=== PATIENT | male | born 1990 | race Caucasian/White ===

== ENCOUNTER 2016-05-12 01:32 | Emergency (ER) | payer BC ==
[2016-05-12] MEDS ORDERED: NORMAL SALINE 1000 ML 1,000 ML IV PRN ×4 (01:44→03:14)
--- NOTE | 2016-05-12 01:44 | ER Document Report ---
ED Cardiac - General Stated Complaint: CHEST PAIN Time seen by provider: 01:44 Mode of Arrival: Ambulatory Information source: Patient TRAVEL OUTSIDE OF THE [place] IN LAST 30 DAYS: No - HPI Patient complains to provider of: Chest tightness, Palpitations, Shortness of breath Was the onset of pain: Sudden When did pain begin: just prior to arrival Is the pain a: New problem Chest pain location: Substernal Quality of pain: Tightness Severity now: Moderate Severity at worst: Moderate Pain level currently: 5 Chest pain precipitating factors: At Rest Cardiac risk factors: Hypertension Positive cardiac history: No Associated symptoms: Palpitations, Shortness of breath Exacerbated by: Denies Relieved by: Nothing Notes: Patient is a 25-year-old male presenting to the emergency room for complaints of chest tightness, shortness of breath and rapid heart rate this suddenly started prior to arrival in the emergency room, patient denies a history of similar symptoms previously, although he admits to having chest pain in the past and actually received a cardiac catheterization within the last year which she reports as being completely normal, he has a history of hypertension and takes lisinopril for this, denies missing any doses of this medication, patient does admit to working out frequently and takes several pre-workout supplements, denies any energy drinks or caffeinated beverages today, denies any illicit drug abuse, no [id number] medications - Related Data Allergies/Adverse Reactions: Penicillins Allergy (Verified 07/02/15 01:08) Past Medical History - General Information source: Patient - Social History Smoking Status: Unknown if Ever Smoked Family History: Reviewed & Not Pertinent - Past Medical History Cardiac Medical History: Reports: Hx Hypertension Psychiatric Medical History: Reports: Hx Anxiety Past Surgical History: Reports: Hx Appendectomy, Hx Orthopedic Surgery - wrist - Immunizations Hx Diphtheria, Pertussis, Tetanus Vaccination: No Review of Systems - Review of Systems Constitutional: No symptoms reported EENT: No symptoms reported Cardiovascular: See HPI Respiratory: No symptoms reported Gastrointestinal: No symptoms reported Genitourinary: No symptoms reported Male Genitourinary: No symptoms reported Musculoskeletal: No symptoms reported Skin: No symptoms reported Hematologic/Lymphatic: No symptoms reported Neurological/Psychological: No symptoms reported -: Yes All other systems reviewed and negative Physical Exam - Vital signs Vitals: Resp Pulse Ox 30 H 99 05/12/16 01:44 05/12/16 01:44 Interpretation: Tachycardic - General General appearance: Appears well, Alert - HEENT Head: Normocephalic, Atraumatic Eyes: Normal Pupils: PERRL - Respiratory Respiratory status: No respiratory distress Chest status: Nontender Breath sounds: Normal Chest palpation: Normal - Cardiovascular Rhythm: Regular, Tachycardia Heart sounds: Normal auscultation Murmur: No - Abdominal Inspection: Normal Distension: No distension Bowel sounds: Normal Tenderness: Nontender Organomegaly: No organomegaly - Back Back: Normal, Nontender - Extremities General upper extremity: Normal inspection, Nontender, Normal color, Normal ROM , Normal temperature General lower extremity: Normal inspection, Nontender, Normal color, Normal ROM , Normal temperature, Normal weight bearing. No: Gibran's sign - Neurological Neuro grossly intact: Yes Cognition: Normal Orientation: AAOx4 [place] Coma Scale Eye Opening: Spontaneous [place] Coma Scale Verbal: Oriented [place] Coma Scale Motor: Obeys Commands [place] Coma Scale Total: 15 Speech: Normal Motor strength normal: LUE, RUE, LLE, RLE Sensory: Normal - Psychological Associated symptoms: Normal affect, Normal mood - Skin Skin Temperature: Warm Skin Moisture: Dry Skin Color: Normal Course - Re-evaluation Re-evalutation: 05/12/16 05:53 Patient's laboratory evaluation consistent with early rhabdomyolysis, his received 6 L of IV fluids, and shows an improvement in his labs as well as his vital signs, he does report feeling somewhat better, I suspect symptoms are related to workout supplements that patient is using, he was advised to discontinue using this, drink plenty of fluids over the next couple of days, follow up with a primary care provider or return if symptoms worsen, patient acknowledges understanding and agreement with this plan - Vital Signs Vital signs: Temp Pulse Resp BP Pulse Ox 22 H 156/93 H 100 05/12/16 05:31 05/12/16 04:31 05/12/16 05:31 - Laboratory Result Diagrams: 05/12/16 05:20 05/12/16 05:20 Laboratory results interpreted by me: 05/12/16 05/12/16 05/12/16 01:45 01:45 01:45 WBC 23.2 H RBC 5.82 H Hgb 17.6 H Hct 53.1 H Seg Neutrophils % Absolute Neutrophils Abs Neuts (Manual) 17.9 H Potassium BUN 28 H Creatinine 1.35 H Calcium AST 73 H ALT 138 H Creatine Kinase 1424 H CK-MB (CK-2) 9.16 H Total Protein Albumin 5.3 H Urine Protein Urine Ketones Urine Ascorbic Acid 05/12/16 05/12/16 05/12/16 02:40 05:20 05:20 WBC 15.3 H RBC Hgb Hct Seg Neutrophils % 80.2 H Absolute Neutrophils 12.3 H Abs Neuts (Manual) Potassium 5.4 H D BUN 26 H Creatinine Calcium 7.8 L AST 61 H ALT 108 H Creatine Kinase 1126 H CK-MB (CK-2) Total Protein 5.9 L Albumin Urine Protein 100 H Urine Ketones TRACE H Urine Ascorbic Acid 40 H - Diagnostic Test Radiology reviewed: Image reviewed, Reports reviewed - EKG Interpretation by De EKG shows normal: Sinus rhythm Rate: Tachycardia Additional EKG results interpreted by nh: 05/12/16 05:53 Patient's repeat EKG shows normal sinus rhythm at a rate of 97 with inferior Q waves, a comparison with a EKG performed on 09/15/2015 reveals inferior Q waves as well, relatively unchanged EKG Discharge - Discharge Clinical Impression: Tachycardia Rhabdomyolysis Qualifiers: Rhabdomyolysis type: non-traumatic Qualified Code(s): M62.82 - Rhabdomyolysis Condition: Stable Disposition: HOME, SELF-CARE Instructions: Chest Wall Pain ([facility]), Sinus Tachycardia ([facility]) Additional Instructions: Drink plenty of fluids and get plenty or rest. Follow up with your primary care provider in one to 2 days. Discontinue using pre-workout supplements as it is likely the cause of your symptoms today. Return to the emergency room immediately if symptoms worsen or any additional concerns.
[2016-05-12 02:09] LABS: ALANINE AMINOTRANSFERASE 138 U/L (21-72); ALBUMIN 5.3 g/dL (3.5-5.0); ALKALINE PHOSPHATASE 63 U/L (38-126); ANION GAP 14 (5-19); ASPARTATE AMINO TRANSFERASE 73 U/L (17-59); BILIRUBIN,TOTAL 0.7 mg/dL (0.2-1.3); BLOOD UREA NITROGEN 28 mg/dL (7-20); CALCIUM 9.9 mg/dL (8.4-10.2); CARBON DIOXIDE 30 mmol/L (22-30); CHLORIDE 99 mmol/L (98-107); CREATINE KINASE 1424 U/L (55-170); CREATININE RESULT 1.35 mg/dL (0.52-1.25); GLUCOSE 79 mg/dL (75-110); POTASSIUM 4.3 mmol/L (3.6-5.0); SODIUM 142.9 mmol/L (137-145)
[2016-05-12 02:15] LABS: HEMATOCRIT 53.1 % (37.9-51.0); HEMOGLOBIN 17.6 g/dL (13.5-17.0); HGB HCT DIFFERENCE -0.3; MEAN CORPUSCULAR HEMOGLOBIN 30.3 pg (27.0-33.4); MEAN CORPUSCULAR HGB CONC 33.2 g/dL (32.0-36.0); MEAN CORPUSCULAR VOLUME 91 fl (80-97); RED BLOOD COUNT 5.82 10^6/uL (4.35-5.55); RED CELL DISTRIBUTION WIDTH 13.8 % (11.5-14.0); WHITE BLOOD COUNT 23.2 10^3/uL (4.0-10.5)
[2016-05-12 02:22] LABS: CREATINE KINASE MB 9.16 ng/mL (<4.55)
[2016-05-12 02:26] LABS: TROPONIN I < 0.012 ng/mL
[2016-05-12 02:31] LABS: BAND NEUTROPHILS % (MANUAL) 4 % (3-5); BASOPHILS % (MANUAL) 0 % (0-2); EOSINOPHILS % (MANUAL) 0 % (0-6); LYMPHOCYTES % (MANUAL) 20 % (13-45); TOTAL CELLS COUNTED 100
[2016-05-12 02:33] LABS: OVALOCYTES SLIGHT; POIKILOCYTOSIS SLIGHT; POLYCHROMASIA SLIGHT; TEAR DROP CELLS SLIGHT; TOXIC GRANULATION SLIGHT
[2016-05-12 03:24] LABS: APPEARANCE,URINE CLEAR; BILIRUBIN,URINE NEGATIVE (NEGATIVE); GLUCOSE, URINE NEGATIVE (NEGATIVE); KETONES,URINE TRACE mg/dL (NEGATIVE); LEUKOCYTE ESTERASE,URINE NEGATIVE (NEGATIVE); NITRITE,URINE NEGATIVE (NEGATIVE); PROTEIN,URINE 100 mg/dL (NEGATIVE); URINE SPECIFIC GRAVITY 1.023; UROBILINOGEN,URINE NEGATIVE mg/dL (<2.0)
[2016-05-12 03:27] LABS: URINE BARBITURATES SCREEN NEGATIVE; URINE METHADONE SCREEN NEGATIVE; URINE PHENCYCLIDINE SCREEN NEGATIVE
[2016-05-12] MEDS ORDERED: NORMAL SALINE 1000 ML 2,000 ML IV PRN (04:34)
[2016-05-12 05:43] LABS: ABSOLUTE BASOPHILS # (AUTO) 0.1 10^3/uL (0.0-0.2); ABSOLUTE LYMPHOCYTES (AUTO) 2.1 10^3/uL (0.5-4.7); ABSOLUTE MONOCYTES (AUTO) 0.9 10^3/uL (0.1-1.4); ABSOLUTE NEUT (AUTO) 12.3 10^3/uL (1.7-8.2); BASOPHILS % (AUTO) 0.4 % (0-2); EOSINOPHILS % (AUTO) 0.1 % (0-6); HEMATOCRIT 45.5 % (37.9-51.0); HEMOGLOBIN 15.6 g/dL (13.5-17.0); HGB HCT DIFFERENCE 1.3; LYMPHOCYTES % (AUTO) 13.5 % (13-45); MEAN CORPUSCULAR HEMOGLOBIN 31.1 pg (27.0-33.4); MEAN CORPUSCULAR HGB CONC 34.3 g/dL (32.0-36.0); MEAN CORPUSCULAR VOLUME 91 fl (80-97); MONOCYTES % (AUTO) 5.8 % (3-13); RED BLOOD COUNT 5.02 10^6/uL (4.35-5.55); RED CELL DISTRIBUTION WIDTH 13.9 % (11.5-14.0); SEGMENTED NEUTROPHILS % (AUTO) 80.2 % (42-78); WHITE BLOOD COUNT 15.3 10^3/uL (4.0-10.5)
[2016-05-12 05:59] LABS: ALANINE AMINOTRANSFERASE 108 U/L (21-72); ALBUMIN 3.5 g/dL (3.5-5.0); ALKALINE PHOSPHATASE 49 U/L (38-126); ANION GAP 10 (5-19); ASPARTATE AMINO TRANSFERASE 61 U/L (17-59); BILIRUBIN,TOTAL 0.6 mg/dL (0.2-1.3); BLOOD UREA NITROGEN 26 mg/dL (7-20); CALCIUM 7.8 mg/dL (8.4-10.2); CARBON DIOXIDE 25 mmol/L (22-30); CHLORIDE 106 mmol/L (98-107); CREATINE KINASE 1126 U/L (55-170); CREATININE RESULT 1.04 mg/dL (0.52-1.25); GLUCOSE 81 mg/dL (75-110); SODIUM 141.2 mmol/L (137-145); TOTAL PROTEIN 5.9 g/dL (6.3-8.2)
[2016-05-12 06:08] LABS: POTASSIUM 5.4 mmol/L (3.6-5.0)
[2016-05-12 06:11] LABS: CREATINE KINASE MB 6.31 ng/mL (<4.55)
[2016-05-12 06:13] LABS: TROPONIN I < 0.012 ng/mL
[2016-05-12] MEDS ORDERED: IBUPROFEN 600 MG TABLET PO ONE (06:18)
[2016-05-12 06:34] VITALS: BP 168/92
--- NOTE | 2016-05-12 09:43 | EKG REPORT ---
SEVERITY:- BORDERLINE ECG - SINUS RHYTHM INFERIOR Q WAVES, PROBABLY NORMAL VARIATION : Confirmed by: Annia Panda MD 12-May-2016 09:42:35
--- NOTE | 2016-05-12 09:43 | EKG REPORT ---
SEVERITY:- ABNORMAL ECG - SINUS OR ECTOPIC ATRIAL TACHYCARDIA NONSPECIFIC IVCD WITH LAD INFERIOR Q WAVES, PROBABLY NORMAL VARIATION : Confirmed by: Annia Panda MD 12-May-2016 09:42:45
== END 2016-05-12 06:35 | disposition home or self-care (01) ==
LOC: ER 01:32
DX: R00.0 Tachycardia, unspecified (principal); M62.82 Rhabdomyolysis; R07.9 Chest pain, unspecified; R06.02 Shortness of breath
CPT/HCPCS: 93005; 99285; 96360; 96361; 36415; 82553; 82550; 85025; 80053; 81001; 84484; 80307; 85379; 71010; 93010; J7030

== ENCOUNTER → 2016-07-04 | Outpatient (CLI) | payer BC ==
[2016-07-05 08:50] LABS: ALANINE AMINOTRANSFERASE 71 U/L (21-72); ALBUMIN 4.7 g/dL (3.5-5.0); ALKALINE PHOSPHATASE 61 U/L (38-126); ANION GAP 13 (5-19); ASPARTATE AMINO TRANSFERASE 44 U/L (17-59); BILIRUBIN,TOTAL 0.9 mg/dL (0.2-1.3); BLOOD UREA NITROGEN 19 mg/dL (7-20); CALCIUM 10.3 mg/dL (8.4-10.2); CARBON DIOXIDE 29 mmol/L (22-30); CHLORIDE 100 mmol/L (98-107); CHOLESTEROL 223.26 mg/dL (0-200); CREATINE KINASE 652 U/L (55-170); CREATININE RESULT 1.16 mg/dL (0.52-1.25); Direct HDL 31 mg/dL (>40); GLUCOSE 87 mg/dL (75-110); MAGNESIUM 1.8 mg/dL (1.6-2.3); POTASSIUM 4.5 mmol/L (3.6-5.0); SODIUM 141.5 mmol/L (137-145); TOTAL PROTEIN 7.5 g/dL (6.3-8.2); TRIGLYCERIDES 134 mg/dL (<150)
[2016-07-05 09:01] LABS: DIRECT LDL 173 mg/dL (<100)
[2016-07-05 09:06] LABS: FREE T3 5.29 pg/mL (2.77-5.27)
[2016-07-05 09:20] LABS: THYROID STIMULATING HORMONE 2.6 uIU/mL (0.47-4.68)
== END ==
LOC: OD 11:52
PROVIDERS: ATTEND Internal Medicine Cardiovascular Disease
DX: R00.0 Tachycardia, unspecified (principal); E78.5 Hyperlipidemia, unspecified; R94.5 Abnormal results of liver function studies; Z79.899 Other long term (current) drug therapy
CPT/HCPCS: 36415; 80048; 80061; 80076; 82550; 83735; 84439; 84443; 84481

== ENCOUNTER 2017-02-24 07:35 | Day surgery (SDC) | payer BC ==
[~2017-02-24 07:35] MED LIST: DIPHENHYDRAMINE HCL 50 MG/ML VIAL ONE; EPINEPHRINE INJ 1 MG/10 ML DISP.SYRIN ONE; FENTANYL CITRATE INJ/PF 100 MCG/2 ML AMPUL ONE; FLUMAZENIL INJ 0.5 MG/5 ML VIAL ONE; GLUCAGON,HUMAN RECOMB 1 MG INJ ONE; NALOXONE HCL INJ/PF 0.4 MG/1 ML SDV ONE; ONDANSETRON HCL INJ/PF 4 MG/2 ML SDV ONE
[2017-02-24] MEDS: MIDAZOLAM 2 MG/2 ML INJ ONE ×2 (08:08→08:14)
--- NOTE | 2017-02-24 08:26 | Operative Report ---
Operative Report DATE OF SURGERY: 02/24/17 Operative Report: The risks benefits and alternatives of the procedure explained to the patient in detail and informed consent is obtained.A GIF Olympus video scope was inserted into the patient's mouth and hypopharynx, the esophagus is identified intubated and insufflated, the scope was then advanced through the esophagus stomach and duodenum, retroflexion maneuver is done, the esophagus stomach and first and second portions of the duodenum examined PREOPERATIVE DIAGNOSIS: Noncardiac chest pain POSTOPERATIVE DIAGNOSIS: Gastritis, duodenitis status post biopsy rule out Helicobacter pylori OPERATION: EGD with biopsy SURGEON: YELENA BELTRAN ANESTHESIA: Moderate Sedation - 4 mg of Versed, 100 mcg of fentanyl. Conscious sedation monitoring time 30 minutes. TISSUE REMOVED OR ALTERED: Gastric mucosal specimen obtained COMPLICATIONS: None. ESTIMATED BLOOD LOSS: None. INTRAOPERATIVE FINDINGS: As noted above. PROCEDURE: Patient tolerated procedure well. No immediate postprocedure complications are noted. Patient discharged in good condition. Discharge date 02/24/2017. Discharge diet: Regular. Discharge activity: Regular. 2-3 week follow-up to discuss findings. Patient is instructed to call the office or proceed to the emergency room should there be any further problems or questions. We will await pathology.
[2017-02-24 09:22] VITALS: BP 107/51
== END 2017-02-24 09:24 | disposition home or self-care (01) ==
LOC: END 07:35
PROVIDERS: ATTEND Internal Medicine Gastroenterology
PROC: 0DB68ZX Excision of Stomach, Via Natural or Artificial Opening Endoscopic, Diagnostic (ICD-10-PCS; principal; 2017-02-24 08:00)
DX: K29.50 Unspecified chronic gastritis without bleeding (principal); R07.89 Other chest pain; I10 Essential (primary) hypertension; Z87.891 Personal history of nicotine dependence; Z79.899 Other long term (current) drug therapy
CPT/HCPCS: 43239; 88342 ×2; 88305 ×2; J2250; J3010; J0171; J1200; J1610; J2310; J2405; J3490

== ENCOUNTER 2018-12-17 00:27 | Emergency (ER) | payer BC, OTHER ==
[2018-12-17] MEDS ORDERED: LORAZEPAM INJ 2 MG/1 ML VIAL IV ONE (00:44)
[2018-12-17] MEDS ORDERED: ANTIVENIN,CROTALIDAE FAB(OVIN) INJ 1 VIAL IV ONE (00:44)
--- NOTE | 2018-12-17 00:51 | ER Document Report ---
ED General - General Chief Complaint: Snake Bite Stated Complaint: SNAKE BITE RIGHT FOOT Time Seen by Provider: 12/17/18 00:43 Primary Care Provider: SAVITA NG MD [EMERITUS] - Follow up as needed Notes: 28-year-old male presents with chest tightness foot tingling swelling and pain after being bit on the side of his foot by "a brown snake" he began swelling immediately. Spent about 30 minutes since the bite. He also has anxiety and panic TRAVEL OUTSIDE OF THE [place] IN LAST 30 DAYS: No - Related Data Allergies/Adverse Reactions: Penicillins Allergy (Verified 07/02/15 01:08) Past Medical History - Social History Smoking Status: Never Smoker Family History: Reviewed & Not Pertinent - Past Medical History Cardiac Medical History: Reports: Hx Coronary Artery Disease - high chol, Hx Hypertension Denies: Hx Heart Attack Pulmonary Medical History: Denies: Hx Asthma, Hx Bronchitis, Hx COPD, Hx Pneumonia Neurological Medical History: Denies: Hx Cerebrovascular Accident, Hx Seizures Musculoskeletal Medical History: Denies Hx Arthritis Psychiatric Medical History: Reports: Hx Anxiety Past Surgical History: Reports: Hx Appendectomy, Hx Cardiac Catheterization, Hx Orthopedic Surgery - wrist - Immunizations Hx Diphtheria, Pertussis, Tetanus Vaccination: No Review of Systems - Review of Systems Notes: REVIEW OF SYSTEMS GEN: Denies fever, chills, weight loss ENT: Denies sore throat, nasal discharge, ear pain EYES: Denies blurry vision, eye pain, discharge CV: chest pain RESP: Denies cough, shortness of breath, wheezing GI: Denies abdominal pain, nausea, vomiting, diarrhea MSK: See HPI SKIN: Denies rash, skin lesions LYMPH: Denies swollen glands/lymph nodes NEURO: Paresthesias PSYCH: Denies depression, suicidal or homicidal ideation PHYSICAL EXAMINATION General: No acute distress, well-nourished Head: Atraumatic, normocephalic ENT: Mouth normal, oropharynx moist, no exudates or tonsillar enlargement Eyes: Conjunctiva normal, pupils equal, lids normal Neck: No JVD, supple, no guarding CVS: Normal rate, regular rhythm, no murmurs Resp: No resp distress, equal and normal breath sounds bilaterally GI: Nondistended, soft, no tenderness to palpation, no rebound or guarding Ext: Nonpitting edema from the toes to the ankle on the right with a bite wound with small blood on the right lateral foot around the base of the fifth metatarsal Back: No CVA or midline TTP Skin: No rash, warm Lymphatic: No lymphadeopathy noted Neuro: Active tingling distal to snakebite on the right foot and toes awake, alert. Face symmetric. GCS 15. Physical Exam - Vital signs Vitals: Temp Pulse Resp BP Pulse Ox 98.3 F 109 H 16 167/99 H 97 12/17/18 00:33 12/17/18 00:33 12/17/18 00:33 12/17/18 00:33 12/17/18 00:33 Course - Re-evaluation Re-evalutation: 12/17/18 00:50 Patient presents with venomous snakebite of the right foot with immediate onset edema. We will keyanna and do serial measurements. He does have some systemic symptoms including paresthesias and chest pressure. He will be given 4 vials of CroFab immediately. I discussed with Dr. Golden from surgery who would like me to send the patient out to an outside facility. The patient was accepted by Dr. Mayorga from [facility] at 12:50 AM as a trauma. 12/17/18 01:40 Patient's edema has progressed slightly. His INR is normal. He feels better after Ativan and his CroFab is infusing. Their care is here to pick him up. He is stable for transfer. - Vital Signs Vital signs: Temp Pulse Resp BP Pulse Ox 98.3 F 109 H 21 H 167/93 H 96 12/17/18 00:33 12/17/18 00:33 12/17/18 01:16 12/17/18 01:16 12/17/18 01:16 - Laboratory Result Diagrams: 12/17/18 00:51 12/17/18 00:51 Laboratory results interpreted by me: 12/17/18 00:51 Lymphocytes % 46.8 H Critical Care Note - Critical Care Note Total time excluding time spent on procedures (mins): 34 Comments: The above patient is critically ill. Not including procedures, but including direct re-evaluations, speaking with patient and/or consultants, interpreting results, and documenting, I spent the total amount of minute listed listed above on critical care time Discharge - Discharge Clinical Impression: Snake bite poisoning Qualifiers: Encounter type: initial encounter Injury intent: accidental or unintentional Qualified Code(s): T63.001A - Toxic effect of unspecified snake venom, accidental (unintentional), initial encounter Condition: Critical Disposition: [facility]LY [facility], [facility] Referrals: SAVITA NG MD [EMERITUS] - Follow up as needed
[2018-12-17 01:25] LABS: INTERNATIONAL RATION (INR) 0.95; PROTHROMBIN TIME 12.7 SEC (11.4-15.4)
[2018-12-17 01:26] LABS: PARTIAL THROMBOPLASTIN TIME 28.1 SEC (23.5-35.8)
[2018-12-17 01:29] LABS: ABSOLUTE EOSINOPHILS # (AUTO) 0.2 10^3/uL (0.0-0.6); ABSOLUTE LYMPHOCYTES (AUTO) 3.9 10^3/uL (0.5-4.7); ABSOLUTE MONOCYTES (AUTO) 0.6 10^3/uL (0.1-1.4); ABSOLUTE NEUT (AUTO) 3.6 10^3/uL (1.7-8.2); BASOPHILS % (AUTO) 0.4 % (0-2); EOSINOPHILS % (AUTO) 2.1 % (0-6); HEMOGLOBIN 16.5 g/dL (13.5-17.0); LYMPHOCYTES % (AUTO) 46.8 % (13-45); MEAN CORPUSCULAR HEMOGLOBIN 31.3 pg (27.0-33.4); MEAN CORPUSCULAR HGB CONC 34.4 g/dL (32.0-36.0); MEAN CORPUSCULAR VOLUME 91 fl (80-97); MONOCYTES % (AUTO) 7.3 % (3-13); PLATELET COUNT 220 10^3/uL (150-450); RED BLOOD COUNT 5.28 10^6/uL (4.35-5.55); RED CELL DISTRIBUTION WIDTH 12.4 % (11.5-14.0); SEGMENTED NEUTROPHILS % (AUTO) 43.4 % (42-78); TOTAL CELLS COUNTED % (AUTO) 100 %; WHITE BLOOD COUNT 8.4 10^3/uL (4.0-10.5)
[2018-12-17 01:31] VITALS: BP 167/93
[2018-12-17 01:41] LABS: ANION GAP 9 (5-19); BLOOD UREA NITROGEN 25 mg/dL (7-20); CALCIUM 9.4 mg/dL (8.4-10.2); CARBON DIOXIDE 29 mmol/L (22-30); CHLORIDE 102 mmol/L (98-107); GLUCOSE 154 mg/dL (75-110); POTASSIUM 3.7 mmol/L (3.6-5.0)
== END 2018-12-17 02:03 | disposition short-term general hospital (02) ==
LOC: ER 00:27
DX: T63.001A Toxic effect of unspecified snake venom, accidental (unintentional), initial encounter (principal); R60.9 Edema, unspecified; R20.2 Paresthesia of skin; Y92.9 Unspecified place or not applicable; I10 Essential (primary) hypertension; E78.00 Pure hypercholesterolemia, unspecified; Z88.0 Allergy status to penicillin
CPT/HCPCS: 36415; 80048; 85025; 85610; 85730